=== PATIENT | male | born 1950 | race Caucasian/White ===

== ENCOUNTER → 2022-08-14 | Outpatient (CLI) | payer OTHER ==
--- NOTE | 2022-08-14 14:52 | DIREP ---
PROCEDURE:CHEST 2 VIEWS COMPARISON:None. INDICATIONS:Z00.00 Encounter for general adult medical examination without abnormal fi FINDINGS: LUNGS/PLEURA:Hyperinflation with flattening of the diaphragm and increased retrosternal airspace. There is mild interstitial thickening within the bilateral hemithoraces with relative paucity of lung markings within the upper hemithoraces. Overall constellation of findings would suggest underlying COPD/emphysema. No suspicious airspace consolidation, pleural effusion or pneumothorax is identified. Nipple shadow overlying the lung bases bilaterally. VASCULATURE:No pulmonary vascular congestion. CARDIAC:The heart is not enlarged. Left-sided cardiac pacing device is present. MEDIASTINUM:Mediastinal contours appear within acceptable limits with calcifications of the aorta. BONES:Mild degenerative changes of the thoracic spine. CONCLUSION: 1. COPD/emphysema. No superimposed acute cardiopulmonary abnormality is identified. Dictated by: Tito Tang M.D. On 08/14/2022 at 02:49 PM
== END | disposition home or self-care (01) ==
LOC: RAD 13:15
PROVIDERS: ATTEND Nurse Practitioner
DX: J44.9 Chronic obstructive pulmonary disease, unspecified (principal); Z00.00 Encounter for general adult medical examination without abnormal findings
CPT/HCPCS: 71046

== ENCOUNTER → 2023-06-26 | Outpatient (CLI) | payer OTHER | END | disposition home or self-care (01) | LOC: RAD 11:16 | PROVIDERS: ATTEND Physician Assistant | DX: J44.1 Chronic obstructive pulmonary disease with (acute) exacerbation (principal); J98.4 Other disorders of lung; R91.1 Solitary pulmonary nodule | CPT/HCPCS: 71046 ==